=== PATIENT | female | born 2000 | race Caucasian/White ===

== ENCOUNTER 2021-04-15 20:32 | Emergency (ER) | payer SELFPAY ==
[~2021-04-15] VITALS: Ht 175.3 cm; Wt 72.6 kg
[2021-04-15 21:16] VITALS: BP 124/68
[2021-04-15 21:53] LABS: BILIRUBIN,URINE NEGATIVE (NEGATIVE); COLOR,URINE YELLOW (YELLOW); LEUKOCYTE ESTERASE ,URINE SMALL (NEGATIVE); NITRITE, URINE NEGATIVE (NEGATIVE); PROTEIN,URINE TRACE mg/dl (NEGATIVE); UGLUCOSE NEGATIVE (NEGATIVE); UROBILINOGEN,URINE 0.2 EU/dL (0.2)
[2021-04-15] MEDS ORDERED: KETOROLAC TROMETHAMINE INJ 60 MG/2 ML VIAL IM ONE (22:00)
[2021-04-15 22:10] LABS: BACTERIA,URINE RARE /HPF (None Seen)
[2021-04-15 22:11] LABS: YEAST,URINE Many /HPF (None Seen)
[2021-04-15] MEDS ORDERED: KETOROLAC TROMETHAMINE INJ 30 MG/ML VIAL ONE (22:12)
[2021-04-15] MEDS ORDERED: CEFTRIAXONE 1 G VIAL IM ONE (22:30)
[2021-04-15] MEDS ORDERED: HYDROCODONE/APAP 5/325MG TABLET PO ONE (22:30)
[2021-04-15] MEDS ORDERED: CEPH500C2 PO (22:33)
[2021-04-15] MEDS ORDERED: FLUC150T PO (22:33)
[2021-04-15] MEDS ORDERED: IBUP-1957 PO (22:33)
[2021-04-15] MEDS ORDERED: HYDROCODONE/APAP 5/325MG TABLET ONE (22:42)
[2021-04-15] MEDS ORDERED: LIDOCAINE /MPF 1% VIAL 5 ML VIAL ONE (22:42)
[2021-04-15] MEDS ORDERED: CEFTRIAXONE 1 G VIAL ONE (22:43)
[2021-04-18] MEDS ORDERED: POTASSIUM CHLORIDE 20 MEQ TAB.PRT.SR PO ONE (21:29)
== END 2021-04-15 22:47 | disposition home or self-care (01) ==
LOC: ER 20:43
DX: N39.0 Urinary tract infection, site not specified (principal); B37.3 Candidiasis of vulva and vagina; Z79.899 Other long term (current) drug therapy
CPT/HCPCS: 81001; 84703; 96372 ×2; 99284; J0696; J1885; J3490; 87086-TC; 87186-TC